=== PATIENT | female | born 1995 | race African-American/Black ===

== ENCOUNTER 2017-01-31 20:10 | Inpatient (IN) | payer MEDICAID ==
[~2017-01-31] VITALS: Ht 162.6 cm; Wt 72.1 kg
[2017-01-31] MEDS ORDERED: KETOROLAC 30MG/ML VIAL IV STA (22:16)
[2017-01-31] MEDS ORDERED: MORPHINE SULFATE 4 MG/ML CPJ (NOT FOR IM USE) IV STA (22:16)
[2017-01-31 22:43] LABS: BASOPHILS % 1.1 % (0.0-2.0); HEMATOCRIT. 33.7 % (36.0-48.0); HEMOGLOBIN. 10.9 g/dL (12.0-16.0); LYMPHOCYTES % 38.7 % (20.0-50.0); MEAN CORPUSCULAR HEMOGLOBIN 27.2 pg (28.0-32.0); MEAN CORPUSCULAR HGB CONC 32.2 g/dL (31.0-37.0); MEAN CORPUSCULAR VOLUME 84.4 fL (81.0-99.0); MEAN PLATELET VOLUME 7.5 fl (7.4-10.4); MONOCYTES % 4.8 % (2.0-8.0); NEUTROPHILS % 52.4 % (40.0-76.0); PLATELET 352 x1000/uL (130-400); RED BLOOD CELL COUNT 3.99 mill/uL (4.2-5.4); RED CELL DISTRIBUTION WIDTH 16.4 % (11.6-14.6); WHITE BLOOD COUNT 8.4 x1000/uL (4.5-11.0)
[2017-01-31 22:51] LABS: CHLORIDE 109 mEq/L (98-107); INDEX HEMOLYSI 1 (1-3); INDEX ICTERIC 1 (1-4); INDEX LIPEMIC 1 (1-3)
[2017-01-31 22:55] LABS: D-DIMER 1.08 mg/L FEU (<0.50); PARTIAL THROMBOPLASTIN TIME 24.4 sec (24.0-34.0); PROTHROMBIN TIME 10.7 sec
[2017-01-31 22:56] LABS: ALANINE AMINOTRANSFERASE 42 IU/L (13-61); ALBUMIN 2.4 g/dL (3.4-5.0); ANION GAP 12; CALCIUM 8.2 mg/dL (8.5-10.1); CARBON DIOXIDE 24 mEq/L (21-32); LIPASE 80 IU/L (73-393); UREA NITROGEN BLOOD 15 mg/dL (7-21); eGFR > 60 mL/min (>60)
[2017-01-31 23:00] LABS: NT PRO B-TYPE NATRIURETIC PEP 9639 pg/mL (5-125); TROPONIN I 0.21 ng/mL (0.00-0.04)
[2017-01-31 23:03] LABS: HCG SCREEN NEGATIVE
[2017-02-01] VITALS (7 sets, daily range): BP systolic 97–116; BP diastolic 72–95
[2017-02-01 00:34] LABS: *BARBITURATES SCREEN URINE NEGATIVE (NEGATIVE); *BENZODIAZEPINES SCREEN URINE NEGATIVE (NEGATIVE); METHADONE URINE SCREEN NEGATIVE (NEGATIVE); OPIATES URINE SCREEN NEGATIVE (NEGATIVE); PHENCYCLIDINE URINE SCREEN NEGATIVE (NEGATIVE)
[2017-02-01 00:42] LABS: *AMPHETAMINES SCREEN URINE PRESUMTIVE POSITIVE (NEGATIVE); *COCAINE SCREEN URINE PRESUMTIVE POSITIVE (NEGATIVE); CANNABINOID URINE SCREEN PRESUMTIVE POSITIVE (NEGATIVE); ECSTASY MDMA SCREEN URINE CONF.TEST INDICATED (NEGATIVE)
[2017-02-01] MEDS ORDERED: SODIUM CHLORIDE 0.9% 1,000 ML IV ONE (01:00)
[2017-02-01] MEDS ORDERED: CEFTRIAXONE 2 G PREMIX 50 ML IV ONE (01:00)
[2017-02-01] MEDS: AZITHROMYCIN 500 MG in DEXT 5% WATER 250 ML IV SCH (01:58)
[2017-02-01] MEDS ORDERED: ASPIRIN 325MG EC TABLET PO ONE (02:00)
[2017-02-01] MEDS ORDERED: LORAZEPAM 2MG/ML CPJ ONE (02:31)
[2017-02-01] MEDS ORDERED: ONDANSETRON HCL 4MG/2ML VIAL IV PRN (02:40)
[2017-02-01] MEDS ORDERED: IOHEXOL-350 100 ML BOTTLE ONE (06:00)
[2017-02-01] MEDS ORDERED: SODIUM CHLORIDE 0.9% 10ML VIAL ONE (06:00)
[2017-02-01 08:56] LABS: CREATINE KINASE MB FRACTION 3.1 ng/mL (0.5-3.6); TROPONIN I 0.2 ng/mL (0.00-0.04)
[2017-02-01] MEDS: MORPHINE SULFATE 2 MG/ML CPJ (NOT FOR IM USE) IV PRN ×2 (14:02→19:59)
[2017-02-01] MEDS: FUROSEMIDE 40MG/4ML VIAL IVP SCH (14:30)
[2017-02-01 14:59] LABS: CREATINE KINASE MB FRACTION 2.9 ng/mL (0.5-3.6); TROPONIN I 0.19 ng/mL (0.00-0.04)
[2017-02-01] MEDS: IPRATROPIUM/ALBUTEROL 0.5-3(2.5)MG/3ML NEB HHN SCH ×3 (15:53→23:40)
[2017-02-01] MEDS ORDERED: IPRATROPIUM/ALBUTEROL 0.5-3(2.5)MG/3ML NEB HHN PRN (16:15)
[2017-02-01] MEDS: LORAZEPAM 2MG/ML CPJ IV PRN (19:35)
[2017-02-02 00:12] VITALS: BP 124/98
[2017-02-02] MEDS: PROMETHAZINE/DEXTROMETHORPHAN 6.25-15MG/5ML BOTTLE 120ML PO PRN ×4 (01:58→20:48)
[2017-02-02] MEDS: AZITHROMYCIN 500 MG in DEXT 5% WATER 250 ML IV SCH (01:58)
[2017-02-02] MEDS: MORPHINE SULFATE 2 MG/ML CPJ (NOT FOR IM USE) IV PRN ×3 (02:34→18:51)
[2017-02-02] MEDS ORDERED: ONDANSETRON HCL 4MG/2ML VIAL IV PRN (02:45)
[2017-02-02] MEDS: IPRATROPIUM/ALBUTEROL 0.5-3(2.5)MG/3ML NEB HHN SCH ×5 (03:47→20:57)
[2017-02-02 04:00] VITALS: BP 102/81
[2017-02-02 08:00] VITALS: BP 112/80
[2017-02-02] MEDS: FUROSEMIDE 40MG/4ML VIAL IVP SCH (08:35)
[2017-02-02] MEDS: LOSARTAN POTASSIUM 50 MG TABLET PO SCH (08:35)
[2017-02-02 10:43] LABS: ALANINE AMINOTRANSFERASE 76 IU/L (13-61); ALBUMIN 2.9 g/dL (3.4-5.0); ANION GAP 14; CALCIUM 8.9 mg/dL (8.5-10.1); CARBON DIOXIDE 25 mEq/L (21-32); CHLORIDE 104 mEq/L (98-107); HDL CHOLESTEROL 55 mg/dL (40-59); INDEX HEMOLYSI 1 (1-3); INDEX ICTERIC 1 (1-4); INDEX LIPEMIC 1 (1-3); LDL CHOLESTEROL 139 mg/dL (5-100); NT PRO B-TYPE NATRIURETIC PEP 8333 pg/mL (5-125); T4 FREE 0.94 ng/dL (0.76-1.46); THYROID STIMULATING HORMONE 0.73 uIU/mL (0.36-3.74); TRIGLYCERIDE 149 mg/dL (0-150); UREA NITROGEN BLOOD 19 mg/dL (7-21); eGFR > 60 mL/min (>60)
[2017-02-02 11:21] LABS: BASOPHILS % 0.8 % (0.0-2.0); EOSINOPHILS % 2.8 % (0.0-5.0); HEMATOCRIT. 38.6 % (36.0-48.0); HEMOGLOBIN. 12.6 g/dL (12.0-16.0); LYMPHOCYTES % 34.2 % (20.0-50.0); MEAN CORPUSCULAR HEMOGLOBIN 27.5 pg (28.0-32.0); MEAN CORPUSCULAR HGB CONC 32.7 g/dL (31.0-37.0); MONOCYTES % 8.1 % (2.0-8.0); NEUTROPHILS % 54.1 % (40.0-76.0); PLATELET 432 x1000/uL (130-400); RED CELL DISTRIBUTION WIDTH 16.4 % (11.6-14.6); WHITE BLOOD COUNT 8.4 x1000/uL (4.5-11.0)
[2017-02-02 12:00] VITALS: BP 113/80
[2017-02-02] MEDS: ENOXAPARIN 40MG/0.4ML SYR SUBCUT SCH (14:26)
[2017-02-02 15:03] LABS: CREATINE KINASE MB FRACTION 2.3 ng/mL (0.5-3.6); TROPONIN I 0.21 ng/mL (0.00-0.04)
[2017-02-02 16:00] VITALS: BP 110/88
[2017-02-02 20:00] VITALS: BP 122/96
[2017-02-02 23:50] LABS: CREATINE KINASE MB FRACTION 2.2 ng/mL (0.5-3.6); TROPONIN I 0.2 ng/mL (0.00-0.04)
[2017-02-03] VITALS (9 sets, daily range): BP systolic 106–127; BP diastolic 65–103
[2017-02-03] MEDS: IPRATROPIUM/ALBUTEROL 0.5-3(2.5)MG/3ML NEB HHN SCH ×7 (00:40→23:47)
[2017-02-03] MEDS: MORPHINE SULFATE 2 MG/ML CPJ (NOT FOR IM USE) IV PRN ×4 (01:50→16:07)
[2017-02-03] MEDS: PROMETHAZINE/DEXTROMETHORPHAN 6.25-15MG/5ML BOTTLE 120ML PO PRN ×2 (04:20→13:42)
[2017-02-03 07:41] LABS: CREATINE KINASE MB FRACTION 2.8 ng/mL (0.5-3.6); TROPONIN I 0.21 ng/mL (0.00-0.04)
[2017-02-03] MEDS: FUROSEMIDE 40MG/4ML VIAL IVP SCH (08:52)
[2017-02-03] MEDS: ENOXAPARIN 40MG/0.4ML SYR SUBCUT SCH (08:53)
[2017-02-03] MEDS: LOSARTAN POTASSIUM 50 MG TABLET PO SCH (08:55)
[2017-02-04] VITALS: BP 116/73
[2017-02-04] MEDS: MORPHINE SULFATE 2 MG/ML CPJ (NOT FOR IM USE) IV PRN ×5 (01:57→23:45)
[2017-02-04] MEDS: PROMETHAZINE/DEXTROMETHORPHAN 6.25-15MG/5ML BOTTLE 120ML PO PRN ×3 (01:58→17:36)
[2017-02-04] MEDS: IPRATROPIUM/ALBUTEROL 0.5-3(2.5)MG/3ML NEB HHN SCH ×5 (03:05→20:55)
[2017-02-04 08:00] VITALS: BP 127/88
[2017-02-04] MEDS: FUROSEMIDE 40MG/4ML VIAL IVP SCH (08:04)
[2017-02-04] MEDS: LOSARTAN POTASSIUM 50 MG TABLET PO SCH (08:04)
[2017-02-04] MEDS: ENOXAPARIN 40MG/0.4ML SYR SUBCUT SCH (08:05)
[2017-02-04] MEDS: LORAZEPAM 2MG/ML CPJ IV PRN ×2 (09:58→17:40)
[2017-02-04 12:00] VITALS: BP 106/78
[2017-02-04 16:09] LABS: EOSINOPHILS % 6.4 % (0.0-5.0); HEMATOCRIT. 37.3 % (36.0-48.0); HEMOGLOBIN. 12.4 g/dL (12.0-16.0); LYMPHOCYTES % 31.3 % (20.0-50.0); MEAN CORPUSCULAR HEMOGLOBIN 27.9 pg (28.0-32.0); MEAN CORPUSCULAR HGB CONC 33.3 g/dL (31.0-37.0); MEAN CORPUSCULAR VOLUME 83.6 fL (81.0-99.0); MEAN PLATELET VOLUME 7.6 fl (7.4-10.4); MONOCYTES % 9.8 % (2.0-8.0); NEUTROPHILS % 51.5 % (40.0-76.0); PLATELET 480 x1000/uL (130-400); RED BLOOD CELL COUNT 4.47 mill/uL (4.2-5.4); RED CELL DISTRIBUTION WIDTH 16.2 % (11.6-14.6); WHITE BLOOD COUNT 7.2 x1000/uL (4.5-11.0)
[2017-02-04 16:17] LABS: ALBUMIN 2.4 g/dL (3.4-5.0); ANION GAP 13; CALCIUM 8.7 mg/dL (8.5-10.1); CARBON DIOXIDE 28 mEq/L (21-32); CHLORIDE 99 mEq/L (98-107); INDEX HEMOLYSI 1 (1-3); INDEX ICTERIC 1 (1-4); INDEX LIPEMIC 1 (1-3); UREA NITROGEN BLOOD 15 mg/dL (7-21)
[2017-02-04 16:21] LABS: ALANINE AMINOTRANSFERASE 68 IU/L (13-61); eGFR > 60 mL/min (>60)
[2017-02-04 20:00] VITALS: BP 99/72
[2017-02-05] MEDS: IPRATROPIUM/ALBUTEROL 0.5-3(2.5)MG/3ML NEB HHN SCH ×5 (00:32→13:28)
[2017-02-05 04:00] VITALS: BP 96/70
[2017-02-05] MEDS: MORPHINE SULFATE 2 MG/ML CPJ (NOT FOR IM USE) IV PRN (05:41)
[2017-02-05 06:00] VITALS: BP 96/70
[2017-02-05 08:00] VITALS: BP 104/66
[2017-02-05] MEDS: FUROSEMIDE 40MG/4ML VIAL IVP SCH (08:32)
[2017-02-05] MEDS: LOSARTAN POTASSIUM 50 MG TABLET PO SCH (08:32)
[2017-02-05] MEDS: LORAZEPAM 2MG/ML CPJ IV PRN (08:33)
[2017-02-05] MEDS: ENOXAPARIN 40MG/0.4ML SYR SUBCUT SCH (08:33)
[2017-02-05 15:46] VITALS: BP 95/101
[2017-02-09 10:11] LABS: B HENSELAE IGG Negative titer (Neg:<1:320); B HENSELAE IGM Negative titer (Neg:<1:100); B QUINTANA IGG Negative titer (Neg:<1:320); B QUINTANA IGM Negative titer (Neg:<1:100)
[2017-02-09 13:40] LABS: BRUCELLA AB IGG EIA Negative (Negative); BRUCELLA AB IGM EIA Negative (Negative)
== END 2017-02-05 16:35 | disposition home or self-care (01) | DRG 194 ==
LOC: ER 22:01 → 6WST 02-01 01:57
PROVIDERS: ADMIT Internal Medicine; ATTEND Internal Medicine
DX: I11.0 Hypertensive heart disease with heart failure (principal); J96.00 Acute respiratory failure, unspecified whether with hypoxia or hypercapnia; E43 Unspecified severe protein-calorie malnutrition; J18.9 Pneumonia, unspecified organism; I42.9 Cardiomyopathy, unspecified; I50.23 Acute on chronic systolic (congestive) heart failure; F10.10 Alcohol abuse, uncomplicated; N39.0 Urinary tract infection, site not specified; F17.210 Nicotine dependence, cigarettes, uncomplicated; F15.10 Other stimulant abuse, uncomplicated; F14.10 Cocaine abuse, uncomplicated; F12.10 Cannabis abuse, uncomplicated; R74.0 Nonspecific elevation of levels of transaminase and lactic acid dehydrogenase [LDH]; R74.8 Abnormal levels of other serum enzymes; I07.8 Other rheumatic tricuspid valve diseases; F41.9 Anxiety disorder, unspecified; Z95.810 Presence of automatic (implantable) cardiac defibrillator
CPT/HCPCS: 36415; 71010; 71275; 80053; 80061; 80305; 82550; 82553; 83036; 83605; 83690; 83880; 84439; 84443; 84484; 84703; 85025; 85379; 85610; 85651; 85730; 86140; 86611; 86622; 86638; 87040; 93005; 93306; 93970; 94640; 94664; 96365; 96366; 96375; 99285; A4216; J0456; J0696; J1650; J1885; J1940; J2060; J2270; J2405; J7030; J7050; J7060; J7620; Q9967

== ENCOUNTER 2017-03-21 13:08 | Emergency (ER) | payer MEDICAID ==
[~2017-03-21] VITALS: Ht 162.6 cm; Wt 169.5 kg
[2017-03-21] MEDS ORDERED: XANAX (13:33)
[2017-03-21] MEDS ORDERED: FURO-151 PO (13:33)
[2017-03-21] MEDS ORDERED: PROMETHAZINE (13:33)
[2017-03-21] MEDS ORDERED: COR6 PO (13:33)
[2017-03-21] MEDS ORDERED: ASPI-1159 PO (13:34)
[2017-03-21 14:03] VITALS: BP 127/64
[2017-03-21 14:58] LABS: BASOPHILS % 1.1 % (0.0-2.0); EOSINOPHILS % 0.8 % (0.0-5.0); HEMATOCRIT. 36.1 % (36.0-48.0); HEMOGLOBIN. 12.2 g/dL (12.0-16.0); LYMPHOCYTES % 40.2 % (20.0-50.0); MEAN CORPUSCULAR HEMOGLOBIN 28.4 pg (28.0-32.0); MEAN CORPUSCULAR VOLUME 84.1 fL (81.0-99.0); MEAN PLATELET VOLUME 7.7 fl (7.4-10.4); MONOCYTES % 12.7 % (2.0-8.0); NEUTROPHILS % 45.2 % (40.0-76.0); PLATELET 363 x1000/uL (130-400); RED BLOOD CELL COUNT 4.29 mill/uL (4.2-5.4); RED CELL DISTRIBUTION WIDTH 17.9 % (11.6-14.6)
[2017-03-21 15:06] LABS: D-DIMER 0.24 mg/L FEU (<0.50); INR 1.1; PROTHROMBIN TIME 11.9 sec
[2017-03-21 15:12] LABS: CLARITY URINE CLOUDY (CLEAR); COLOR URINE YELLOW (YELLOW); GLUCOSE URINE NEGATIVE (NEGATIVE); KETONES URINE TRACE (NEGATIVE); LEUKOCYTE ESTERASE URINE 2+ (NEGATIVE); NITRITE URINE NEGATIVE (NEGATIVE); OCCULT BLOOD URINE NEGATIVE (NEGATIVE); PH URINE 5.5 (4.5-8.0); PROTEIN URINE NEGATIVE (NEGATIVE); SPECIFIC GRAVITY URINE 1.022 (1.005-1.030)
[2017-03-21 15:12] LABS: CARBON DIOXIDE 23 mEq/L (21-32); CHLORIDE 103 mEq/L (98-107)
[2017-03-21 15:14] LABS: TROPONIN I 0.45 ng/mL (0.00-0.04)
== END 2017-03-21 15:24 | disposition left against medical advice (07) ==
LOC: ER 14:20 → CANBEDREQ 20:04
DX: I21.4 Non-ST elevation (NSTEMI) myocardial infarction (principal); I50.9 Heart failure, unspecified; R00.0 Tachycardia, unspecified; R05 Cough; J02.9 Acute pharyngitis, unspecified; F15.10 Other stimulant abuse, uncomplicated; Z95.0 Presence of cardiac pacemaker; Z79.82 Long term (current) use of aspirin; F17.210 Nicotine dependence, cigarettes, uncomplicated
CPT/HCPCS: 36415; 71010; 80053; 81001; 81025; 83605; 83880; 84484; 85025; 85379; 85610; 87040; 87077; 87086; 87186; 93005; 99291; Z7610

== ENCOUNTER 2017-07-10 14:34 | Emergency (ER) | payer MEDICAID ==
[~2017-07-10] VITALS: Ht 162.6 cm; Wt 78.0 kg
[~2017-07-10 14:34] MED LIST: ASPI-1159 PO; COR6 PO; FURO-151 PO; PROMETHAZINE; XANAX
[2017-07-10] MEDS ORDERED: TETANUS, DIPHTHERIA, PERTUSSIS VAC/PF 0.5ML (>7YR OLD) IM ONE (15:15)
[2017-07-10] MEDS ORDERED: LORAZEPAM 1MG TABLET PO ONE (15:15)
[2017-07-10] MEDS ORDERED: KETOROLAC 60MG/2ML VIAL IM ONE (15:15)
[2017-07-10] MEDS ORDERED: LIDOCAINE HCL 1% 20ML VIAL (Pyxis) INJ INFIL ONE (15:15)
[2017-07-10] MEDS ORDERED: ACETAMINOPHEN WITH CODEINE 300/30MG TABLET PO ONE (15:15)
[2017-07-10 19:22] VITALS: BP 95/63
== END 2017-07-10 19:55 | disposition home or self-care (01) ==
LOC: ER 14:34
DX: S51.811A Laceration without foreign body of right forearm, initial encounter (principal); I50.9 Heart failure, unspecified; F17.200 Nicotine dependence, unspecified, uncomplicated; F12.10 Cannabis abuse, uncomplicated; Z95.0 Presence of cardiac pacemaker; Y08.89XA Assault by other specified means, initial encounter; Y93.89 Activity, other specified; Y92.89 Other specified places as the place of occurrence of the external cause; Y99.8 Other external cause status
CPT/HCPCS: 12002; 81025; 90471; 90715; 96372; 99284; J1885; J3490; X7700; Z7610

== ENCOUNTER 2017-10-30 06:15 | Emergency (ER) | payer SELFPAY ==
[~2017-10-30] VITALS: Ht 167.6 cm; Wt 82.0 kg
[2017-10-30] MEDS ORDERED: SODIUM CHLORIDE 0.9% 1,000 ML IV ONE (06:59)
[2017-10-30] MEDS ORDERED: LORAZEPAM 2MG/ML CPJ IV STA (06:59)
[2017-10-30 07:36] VITALS: BP 122/71
== END 2017-10-30 07:20 | disposition left against medical advice (07) ==
LOC: ER 06:15
DX: F41.9 Anxiety disorder, unspecified (principal); F15.10 Other stimulant abuse, uncomplicated; F19.10 Other psychoactive substance abuse, uncomplicated; F17.200 Nicotine dependence, unspecified, uncomplicated; I50.9 Heart failure, unspecified; I25.2 Old myocardial infarction; F12.10 Cannabis abuse, uncomplicated; R00.1 Bradycardia, unspecified; R05 Cough; R42 Dizziness and giddiness; Z79.82 Long term (current) use of aspirin; Z95.0 Presence of cardiac pacemaker
CPT/HCPCS: 93005; 99283; J7030; Z7610

== ENCOUNTER 2018-01-14 17:48 | Emergency (ER) | payer MEDICAID ==
[~2018-01-14] VITALS: Ht 162.6 cm; Wt 75.0 kg
[2018-01-14 18:00] VITALS: BP 134/76
[2018-01-14 20:23] LABS: CHLORIDE 102 mEq/L (98-107)
[2018-01-14 20:24] LABS: INR 1.1; PROTHROMBIN TIME 11.9 sec (9.4-11.6)
[2018-01-14 20:26] LABS: BASOPHILS % 0.8 % (0.0-2.0); EOSINOPHILS % 0.8 % (0.0-5.0); LYMPHOCYTES % 38.3 % (20.0-50.0); MEAN CORPUSCULAR VOLUME 95.6 fL (81.0-99.0); MEAN PLATELET VOLUME 8.1 fl (7.4-10.4); MONOCYTES % 11.8 % (2.0-8.0); NEUTROPHILS % 48.3 % (40.0-76.0); PLATELET 355 x1000/uL (130-400); RED BLOOD CELL COUNT 4.08 mill/uL (4.2-5.4); RED CELL DISTRIBUTION WIDTH 15.2 % (11.6-14.6)
[2018-01-14 20:28] LABS: ETHANOL BLOOD < 10 mg/dL
[2018-01-14 20:35] LABS: *BARBITURATES SCREEN URINE NEGATIVE (NEGATIVE); *BENZODIAZEPINES SCREEN URINE NEGATIVE (NEGATIVE); *COCAINE SCREEN URINE NEGATIVE (NEGATIVE); METHADONE URINE SCREEN NEGATIVE (NEGATIVE)
[2018-01-14 20:36] LABS: PHENCYCLIDINE URINE SCREEN NEGATIVE (NEGATIVE)
[2018-01-14 20:41] LABS: *AMPHETAMINES SCREEN URINE PRESUMTIVE POSITIVE (NEGATIVE); CANNABINOID URINE SCREEN PRESUMTIVE POSITIVE (NEGATIVE); OPIATES URINE SCREEN PRESUMTIVE POSITIVE (NEGATIVE)
== END 2018-01-14 19:17 | disposition left against medical advice (07) ==
LOC: ER 18:05
DX: R00.2 Palpitations (principal); I50.9 Heart failure, unspecified; F15.10 Other stimulant abuse, uncomplicated; Z95.0 Presence of cardiac pacemaker; Z79.82 Long term (current) use of aspirin
CPT/HCPCS: 36415; 80053; 80305; 81025; 83880; 84484; 85025; 85610; 93005; 99285; G0482

== ENCOUNTER 2018-01-14 19:39 | Emergency (ER) | payer MEDICAID ==
[~2018-01-14] VITALS: Ht 165.1 cm; Wt 75.0 kg
[2018-01-14 21:28] LABS: BASOPHILS % 0.7 % (0.0-2.0); EOSINOPHILS % 0.7 % (0.0-5.0); HEMATOCRIT. 38.4 % (36.0-48.0); LYMPHOCYTES % 40.4 % (20.0-50.0); MEAN CORPUSCULAR HEMOGLOBIN 32.4 pg (28.0-32.0); MEAN CORPUSCULAR VOLUME 95.3 fL (81.0-99.0); MEAN PLATELET VOLUME 7.9 fl (7.4-10.4); MONOCYTES % 8.5 % (2.0-8.0); NEUTROPHILS % 49.7 % (40.0-76.0); PLATELET 330 x1000/uL (130-400); RED BLOOD CELL COUNT 4.03 mill/uL (4.2-5.4); RED CELL DISTRIBUTION WIDTH 15.2 % (11.6-14.6)
[2018-01-14 21:32] LABS: INR 1.1; PROTHROMBIN TIME 11.9 sec (9.4-11.6)
[2018-01-14 21:33] LABS: CHLORIDE 103 mEq/L (98-107)
[2018-01-14 21:35] LABS: METHADONE URINE SCREEN NEGATIVE (NEGATIVE); PHENCYCLIDINE URINE SCREEN NEGATIVE (NEGATIVE)
[2018-01-14 21:36] LABS: *BARBITURATES SCREEN URINE NEGATIVE (NEGATIVE); *BENZODIAZEPINES SCREEN URINE NEGATIVE (NEGATIVE); *COCAINE SCREEN URINE NEGATIVE (NEGATIVE)
[2018-01-14 21:39] LABS: HCG SCREEN NEGATIVE
[2018-01-14 21:40] LABS: ETHANOL BLOOD < 10 mg/dL
[2018-01-14 21:41] LABS: *AMPHETAMINES SCREEN URINE PRESUMTIVE POSITIVE (NEGATIVE); CANNABINOID URINE SCREEN PRESUMTIVE POSITIVE (NEGATIVE); OPIATES URINE SCREEN PRESUMTIVE POSITIVE (NEGATIVE)
[2018-01-14 23:00] VITALS: BP 123/92
== END 2018-01-15 | disposition left against medical advice (07) ==
LOC: ER 20:54
DX: R00.2 Palpitations (principal); I50.9 Heart failure, unspecified; F17.200 Nicotine dependence, unspecified, uncomplicated; F15.10 Other stimulant abuse, uncomplicated; Z79.82 Long term (current) use of aspirin
CPT/HCPCS: 36415; 71045; 80053; 80305; 84484; 84703; 85025; 85610; 93005; 99285; G0482

== ENCOUNTER 2018-01-31 23:18 | Emergency (ER) | payer MEDICAID ==
[~2018-01-31] VITALS: Ht 162.6 cm; Wt 71.0 kg
[2018-02-01 00:49] VITALS: BP 133/86
== END 2018-02-01 01:00 | disposition left against medical advice (07) ==
LOC: ER 23:18
DX: Z53.21 Procedure and treatment not carried out due to patient leaving prior to being seen by health care provider (principal)

== ENCOUNTER 2018-02-07 06:20 | Emergency (ER) | payer MEDICAID ==
[~2018-02-07] VITALS: Ht 162.6 cm; Wt 72.0 kg
[2018-02-07 06:32] VITALS: BP 134/89
[2018-02-07] MEDS ORDERED: IPRATROPIUM BROMIDE (0.02%) 0.5MG/2.5ML NEB HHN STA (06:45)
[2018-02-07] MEDS ORDERED: ASPIRIN 81MG TABLET PO ONE (06:45)
[2018-02-07] MEDS ORDERED: ALBUTEROL (0.083%) 2.5MG/3ML NEB HHN STA (06:45)
[2018-02-07 07:22] LABS: BASOPHILS % 0.6 % (0.0-2.0); EOSINOPHILS % 1.4 % (0.0-5.0); HEMATOCRIT. 33.7 % (36.0-48.0); HEMOGLOBIN. 11.2 g/dL (12.0-16.0); LYMPHOCYTES % 33.3 % (20.0-50.0); MEAN CORPUSCULAR HEMOGLOBIN 31.5 pg (28.0-32.0); MEAN CORPUSCULAR VOLUME 94.9 fL (81.0-99.0); MEAN PLATELET VOLUME 7.1 fl (7.4-10.4); MONOCYTES % 9.4 % (2.0-8.0); NEUTROPHILS % 55.3 % (40.0-76.0); PLATELET 321 x1000/uL (130-400); RED BLOOD CELL COUNT 3.55 mill/uL (4.2-5.4); RED CELL DISTRIBUTION WIDTH 14.9 % (11.6-14.6)
[2018-02-07 07:27] LABS: CHLORIDE 108 mEq/L (98-107)
[2018-02-07 07:32] LABS: D-DIMER 0.65 mg/L FEU (<0.50); PARTIAL THROMBOPLASTIN TIME 24.5 sec (23.4-31.0); PROTHROMBIN TIME 10.8 sec (9.4-11.6)
[2018-02-07 07:38] LABS: CLARITY URINE CLEAR (CLEAR); COLOR URINE YELLOW (YELLOW); KETONES URINE TRACE (NEGATIVE); LEUKOCYTE ESTERASE URINE 1+ (NEGATIVE); NITRITE URINE NEGATIVE (NEGATIVE); OCCULT BLOOD URINE NEGATIVE (NEGATIVE); PH URINE 5.5 (4.5-8.0); PROTEIN URINE 2+ (NEGATIVE); SPECIFIC GRAVITY URINE 1.029 (1.005-1.030); UROBILINOGEN URINE 0.2 E.U./dL (0.2-1.0)
== END 2018-02-07 07:50 | disposition left against medical advice (07) ==
LOC: ER 06:20
DX: R07.89 Other chest pain (principal); I45.6 Pre-excitation syndrome; R00.0 Tachycardia, unspecified; I25.2 Old myocardial infarction; F17.200 Nicotine dependence, unspecified, uncomplicated; F15.10 Other stimulant abuse, uncomplicated; Z79.82 Long term (current) use of aspirin; Z95.0 Presence of cardiac pacemaker
CPT/HCPCS: 36415; 71045; 80053; 81003; 81025; 82962; 83880; 84484; 85025; 85379; 85610; 85730; 87086; 93005; 94640; 99285; J7611; Z7610

== ENCOUNTER 2018-08-01 05:32 | Emergency (ER) | payer MEDICAID ==
[~2018-08-01] VITALS: Ht 162.6 cm; Wt 69.0 kg
[2018-08-01 05:36] VITALS: BP 128/90
== END 2018-08-01 07:31 | disposition left against medical advice (07) ==
LOC: ER 05:32
DX: Z53.21 Procedure and treatment not carried out due to patient leaving prior to being seen by health care provider (principal)
CPT/HCPCS: 93005